=== PATIENT | male | born 1990 ===

== ENCOUNTER 2017-04-24 14:32 | Emergency (ER) | payer OTHER ==
[2017-04-24 15:02] VITALS: RESP 20; TEMP 98; O2SAT 99
[2017-04-24] MEDS ORDERED: Naproxen 550 mg Tab PO STA (15:33)
--- NOTE | 2017-04-24 15:35 | C.PDOC ---
History Of Present Illness 27 y/o male presents to the ER for sore throat, non-productive cough, and chills which have been present for 1 week. Patient denies having chest pain, shortness of breath, and abdominal pain. Patient denies having any sick contacts. Time Seen by Provider: 04/24/17 15:07 Chief Complaint (Nursing): ENT Problem History Per: Patient History/Exam Limitations: no limitations Onset/Duration Of Symptoms: Days Current Symptoms Are (Timing): Still Present Severity: Moderate Past Medical History Reviewed: Historical Data, Nursing Documentation, Vital Signs Vital Signs: Last Vital Signs Temp 98.0 F 04/24/17 15:01 Pulse 79 04/24/17 15:47 Resp 20 04/24/17 15:47 BP 110/68 04/24/17 15:47 Pulse Ox 99 04/24/17 15:47 - Medical History PMH: No Chronic Diseases Surgical History: No Surg Hx Family History: States: No Known Family Hx - Social History Hx Tobacco Use: No Hx Alcohol Use: Yes Hx Substance Use: No - Immunization History Hx Tetanus Toxoid Vaccination: No Hx Influenza Vaccination: No Hx Pneumococcal Vaccination: No Review Of Systems Except As Marked, All Systems Reviewed And Found Negative. Constitutional: Positive for: Chills. Negative for: Fever ENT: Positive for: Throat Pain Cardiovascular: Negative for: Chest Pain Respiratory: Positive for: Cough (non-productive cough). Negative for: Shortness of Breath Gastrointestinal: Negative for: Abdominal Pain Physical Exam - Physical Exam Appears: Non-toxic, No Acute Distress, Other (comfortable, speaking in full sentences) Skin: Normal Color, Warm Head: Atraumatic, Normacephalic Eye(s): bilateral: Normal Inspection, PERRL Nose: Normal Oral Mucosa: Moist Throat: Erythema (pharyngeal erythema), No Exudate, Other (no swollen tonsils) Neck: Supple Chest: Symmetrical Cardiovascular: Rhythm Regular Respiratory: Normal Breath Sounds, No Accessory Muscle Use, No Rales, No Rhonchi , No Wheezing Extremity: Normal ROM Neurological/Psych: Oriented x3, Normal Speech, Normal Cognition, Normal Motor, Normal Sensation ED Course And Treatment O2 Sat by Pulse Oximetry: 99 (RA) Pulse Ox Interpretation: Normal Progress Note: Patient given Naproxen and Benzonatate. Disposition Counseled Patient/Family Regarding: Diagnosis, Need For Followup, Rx Given - Disposition Referrals: [facility] [Outside] Disposition: HOME/ ROUTINE Disposition Time: 15:45 Additional Instructions: FOLLOW UP WITH YOUR DOCTOR/CLINIC IN 1-2 DAYS USE MEDICATIONS DIRECTED/NEEDED DRINK PLENTY OF FLUIDS RETURN TO EMERGENCY ROOM IF SYMPTOMS WORSEN Prescriptions: Benzonatate [Tessalon Perles] 100 mg PO BID PRN #15 sgl PRN Reason: Cough Ibuprofen Susp [Motrin Oral Susp] 400 mg PO Q6 PRN #1 bottle PRN Reason: PAIN/FEVER Phenol/Glycerin [Chloraseptic Max [place]] 1 spray MM Q6 PRN #1 spray PRN Reason: THROAT PAIN Instructions: Upper Respiratory Infection (ED), Viral Syndrome (ED) Forms: [employer] (Syrian), Work Excuse Print Language: WOLOF - Clinical Impression Clinical Impression: Viral upper respiratory infection - Scribe Statement The provider has reviewed the documentation as recorded by the Romarioibkary Chang Provider Attestation: All medical record entries made by the Scribe were at my direction and personally dictated by me. I have reviewed the chart and agree that the record accurately reflects my personal performance of the history, physical exam, medical decision making, and the department course for this patient. I have also personally directed, reviewed, and agree with the discharge instructions and disposition.
[2017-04-24 15:48] VITALS: BP 110/68; PULSE 79
== END 2017-04-24 15:51 | disposition home or self-care (01) ==
LOC: C.ER 14:32
DX: J06.9 Acute upper respiratory infection, unspecified (principal)